=== PATIENT | female | born 1985 | race Hispanic/Latino ===

== ENCOUNTER 2020-05-20 19:40 | Emergency (ER) | payer OTHER ==
[2020-05-20] MEDS ORDERED: SODIUM CHLORIDE 0.9% 1000ML 1,000 ML IV ONE (20:09)
[2020-05-20] MEDS ORDERED: LIDOCAINE HCL 2% VISCOUS 15 ML UDCUP ONE (20:09)
[2020-05-20] MEDS ORDERED: MAG HYDROX/AL HYDROX/SIMETH ES 30 ML SUSP UDCUP ONE (20:09)
[2020-05-20] MEDS ORDERED: DICYCLOMINE HCL 10 MG/ML 2ML AMP IM ONE (20:10)
[2020-05-20 20:14] LABS: APPEARANCE,URINE Clear (CLEAR); BILIRUBIN,URINE Negative (NEGATIVE); COLOR,URINE Yellow (YELLOW); GLUCOSE, URINE (UA) Negative (NEGATIVE); HCG,QUAL RESULT NEGATIVE (NEGATIVE); KETONES,URINE 15 mg/dL (NEGATIVE); LEUKOCYTE ESTERASE ,URINE Negative (NEGATIVE); NITRATE,URINE Negative (NEGATIVE); OCCULT BLOOD,URINE Negative (NEGATIVE); PROTEIN,URINE Negative (NEGATIVE); UROBILINOGEN,URINE 0.2 mg/dL (0.2-1.0)
[2020-05-20 20:30] LABS: BASOPHILS % (AUTO) 0.3 % (0.0-5.0); HEMATOCRIT 41.8 % (36-48); LYMPHOCYTES % (AUTO) 26.8 % (21.0-51.0); MEAN CORPUSCULAR HEMOGLOBIN 29.9 pg (27.0-33.0); MEAN CORPUSCULAR VOLUME 90.7 fL (79-99); MONOCYTES % (AUTO) 7.9 % (3.0-13.0); NEUTROPHILS % (AUTO) 63.2 % (40.0-77.0); PLATELET COUNT (AUTO) 264 K/uL (130-400); RED BLOOD CELL COUNT(AUTO) 4.61 MIL/uL (4.00-5.50); RED CELL DISTRIBUTION WIDTH 12.8 % (11.0-15.5); WHITE BLOOD COUNT (AUTO) 9.2 K/uL (4.8-10.8)
[2020-05-20 20:45] LABS: CREATININE 0.9 mg/dL (0.5-1.5)
[2020-05-20 20:49] LABS: ALBUMIN 3.8 g/dL (3.5-5.0); BILIRUBIN,TOTAL 0.3 mg/dL (0.2-1.0); TOTAL PROTEIN, SERUM 7.5 g/dL (6.0-8.3)
== END 2020-05-20 21:15 | disposition home or self-care (01) ==
LOC: EDH 19:40
DX: K29.00 Acute gastritis without bleeding (principal); Z90.49 Acquired absence of other specified parts of digestive tract
CPT/HCPCS: 36415; 80053; 81003; 81025; 83690; 85025; 96360; 99283; J0500; J7030

== ENCOUNTER → 2020-10-24 | Outpatient (CLI) | payer BC ==
[2020-10-24 09:23] LABS: INR 0.97 (0.85-1.15); PROTHROMBIN TIME 10.6 SEC (9.6-11.6)
[2020-10-24 09:24] LABS: PARTIAL THROMBOPLASTIN TIME 24.8 SEC (26.3-35.5)
== END | disposition home or self-care (01) ==
LOC: RAH 07:50
PROVIDERS: ATTEND Otolaryngology Plastic Surgery within the Head & Neck
DX: R22.1 Localized swelling, mass and lump, neck (principal)
CPT/HCPCS: 10005; 36415; 38505; 76942; 85610; 85730

== ENCOUNTER 2023-11-06 16:34 | Emergency (ER) | payer OTHER, MEDICAID ==
[~2023-11-06] VITALS: Ht 149.9 cm; Wt 63.5 kg
[2023-11-06 19:33] VITALS: BP 124/85; PULSE 80; RESP 18; O2SAT 99
== END 2023-11-06 19:34 | disposition home or self-care (01) ==
LOC: EDH 16:34
DX: S00.33XA Contusion of nose, initial encounter (principal); V89.2XXA Person injured in unspecified motor-vehicle accident, traffic, initial encounter; Y93.I9 Activity, other involving external motion; Y92.488 Other paved roadways as the place of occurrence of the external cause; Y99.8 Other external cause status
CPT/HCPCS: 70450; 70486; 71045; 72125; 81025